=== PATIENT | female | born 1995 | race Two or more races ===

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

== ENCOUNTER 2017-04-26 21:17 | Outpatient (CLI) | payer MEDICAID ==
[2017-04-26 21:55] LABS: APPEARANCE,URINE SLIGHTLY-CLOUDY; BILIRUBIN,URINE NEGATIVE (NEGATIVE); COLOR,URINE YELLOW; GLUCOSE, URINE NEGATIVE (NEGATIVE); KETONES,URINE NEGATIVE (NEGATIVE); LEUKOCYTE ESTERASE,URINE NEGATIVE (NEGATIVE); NITRITE,URINE NEGATIVE (NEGATIVE); PROTEIN,URINE NEGATIVE (NEGATIVE); URINE SPECIFIC GRAVITY 1.017
[2017-04-26 22:11] LABS: URINE AMPHETAMINES SCREEN NEGATIVE; URINE BARBITURATES SCREEN NEGATIVE; URINE BENZODIAZEPINES SCREEN NEGATIVE; URINE COCAINE SCREEN NEGATIVE; URINE MARIJUANA (THC) SCREEN NEGATIVE; URINE METHADONE SCREEN NEGATIVE; URINE PHENCYCLIDINE SCREEN NEGATIVE
[2017-04-26] MEDS ORDERED: HYDROXYZINE PAMOATE 50 MG CAPSULE PO ONE (22:50)
[2017-04-26] MEDS ORDERED: HYDROXYZINE PAMOATE 50 MG CAPSULE ONE (22:53)
--- NOTE | 2017-04-26 23:06 | Non Stress Test Report ---
Non Stress Test Datetime Report Generated by CPN: 04/26/2017 23:06 DEMOGRAPHIC EGA NST: 41.0 INDICATION Indication for Study: Ordered by Provider URINE RESULTS Urine Protein, NST: Negative Urine Ketones - NST: Negative Urine Glucose - NST: Negative Urine Blood - NST: Negative MONITORING Monitor Explained: Monitor Explained; Test Explained; Patient Verbalized Understanding Time on Monitor: 04/26/2017 21:32 Time off Monitor: 04/26/2017 22:53 NST Duration: 81 NST INTERVENTIONS NST Interventions: PO Hydration; Oxytocin Challenge Test Physician Notified NST: Dr. Alvin BABY A: [id number] BABY A Movement : Present Contraction Frequency : 1-8 FHR Baseline : 145 Accelerations : 15X15 Decelerations : None Variability : Moderate 6-25bpm NST Review: Meets Criteria for Reactive NST NST Review and Verified By : Rosa Elena Muñoz RN NST Results: Reactive NST REPORT Report Trigger: Send Report
== END 2017-04-26 23:08 | disposition home or self-care (01) ==
LOC: LC 21:17
PROVIDERS: ATTEND Obstetrics & Gynecology
PROC: 4A1HXCZ Monitoring of Products of Conception, Cardiac Rate, External Approach (ICD-10-PCS; principal; 2017-04-26)
DX: Z34.93 Encounter for supervision of normal pregnancy, unspecified, third trimester (principal)
CPT/HCPCS: 59025; 81005; 80307; J3490

== ENCOUNTER 2017-04-27 01:26 | Inpatient (IN) | payer MEDICAID ==
[2017-04-27 02:13] LABS: ABSOLUTE EOSINOPHILS # (AUTO) 0.1 10^3/uL (0.0-0.6); ABSOLUTE LYMPHOCYTES (AUTO) 2.2 10^3/uL (0.5-4.7); ABSOLUTE NEUT (AUTO) 11.2 10^3/uL (1.7-8.2); BASOPHILS % (AUTO) 0.2 % (0-2); EOSINOPHILS % (AUTO) 0.8 % (0-6); HEMATOCRIT 33.7 % (36.0-47.0); HEMOGLOBIN 11.2 g/dL (12.0-15.5); LYMPHOCYTES % (AUTO) 15.1 % (13-45); MEAN CORPUSCULAR HEMOGLOBIN 29.4 pg (27.0-33.4); MEAN CORPUSCULAR HGB CONC 33.1 g/dL (32.0-36.0); MEAN CORPUSCULAR VOLUME 89 fl (80-97); MONOCYTES % (AUTO) 6.9 % (3-13); PLATELET COUNT 287 10^3/uL (150-450); RED CELL DISTRIBUTION WIDTH 13.5 % (11.5-14.0); TOTAL CELLS COUNTED % (AUTO) 100 %; WHITE BLOOD COUNT 14.6 10^3/uL (4.0-10.5)
[2017-04-27] MEDS: RINGERS SOLUTION,LACTATED 1,000 ML IV PRN ×3 (02:23→03:22)
[2017-04-27] MEDS ORDERED: MISOPROSTOL 0.2 MG TABLET ONE (02:30)
[2017-04-27] MEDS ORDERED: EPHEDRINE SULFATE INJ 50 MG/1 ML AMPULE ONE (02:30)
[2017-04-27] MEDS ORDERED: LIDOCAINE 1% INJ-PF (10 MG/ML) 30 ML SDV ONE (02:31)
[2017-04-27] MEDS ORDERED: FENTANYL/BUPIVACAINE/NS/PF 200 MCG/100 ML RTUINJ EPI ONE (02:31)
[2017-04-27] MEDS ORDERED: OXYTOCIN/NORMAL SALINE 20 UNIT/1,000 ML RTUINJ ONE (02:31)
[2017-04-27] MEDS ORDERED: BUPIVACAINE HCL 0.25 % INJ/PF (2.5 MG/1 ML) 30 ML VIAL ONE (02:31)
[2017-04-27] MEDS ORDERED: PROMETHAZINE HCL 25 MG TABLET PO PRN (06:13)
[2017-04-27] MEDS ORDERED: GLYCERIN/WITCH HAZEL LEAF 1 EACH MED..PAD TP PRN (06:13)
[2017-04-27] MEDS ORDERED: DIBUCAINE 1% OINTMENT 28 GM TP PRN (06:13)
[2017-04-27] MEDS ORDERED: NA PHOS,M-B/NA PHOS,DI-BA (ADULT) 133 ML ENEMA PR PRN (06:13)
[2017-04-27] MEDS ORDERED: PROMETHAZINE HCL 25 MG SUPP.RECT PR PRN (06:13)
[2017-04-27] MEDS ORDERED: MEASLES,MUMPS&RUBELLA VACC/PF 0.5 ML VIAL SUBCUT PRN (06:13)
[2017-04-27] MEDS ORDERED: ACETAMINOPHEN WITH CODEINE #3 TABLET PO PRN ×2 (06:13)
[2017-04-27] MEDS ORDERED: ACETAMINOPHEN 650 MG SUPP.RECT PR PRN (06:13)
[2017-04-27] MEDS ORDERED: MAGNESIUM HYDROXIDE SUSP 30 ML UDCUP PO PRN (06:13)
[2017-04-27] MEDS ORDERED: OXYTOCIN/NORMAL SALINE 20 UNIT/1,000 ML RTUINJ IV PRN (06:13)
[2017-04-27] MEDS ORDERED: PSEUDOEPHEDRINE HCL 30 MG TABLET PO PRN (06:13)
[2017-04-27] MEDS ORDERED: DIPH/PERTUSS(ACELL)/TETANUS VAC/PF 0.5 ML SYR (>=10YO) IM PRN (06:13)
[2017-04-27] MEDS ORDERED: PROMETHAZINE HCL INJ 25 MG/1 ML VIAL IV PRN (06:13)
[2017-04-27] MEDS ORDERED: ZOLPIDEM TARTRATE 5 MG TABLET PO PRN (06:13)
[2017-04-27] MEDS ORDERED: DIPHENHYDRAMINE HCL 25 MG CAPSULE PO PRN (06:13)
[2017-04-27] MEDS ORDERED: BENZOCAINE/MENTHOL AEROSOL SPRAY 56 ML TOP PRN (06:13)
[2017-04-27 06:44] LABS: ARTERIAL BLOOD BASE EXCESS -2.8 mmol/L; ARTERIAL BLOOD H2CO3 1.52 mmol/L (1.05-1.35); ARTERIAL BLOOD HCO3 24.2 mmol/L (20-26); ARTERIAL BLOOD O2 SATURATION 23.4 % (94-98); ARTERIAL BLOOD PCO2 50.5 mmHg (35-45); ARTERIAL BLOOD TOTAL CO2 25.7 mmol/L (21-25)
[2017-04-27 06:45] LABS: ARTERIAL BLOOD FIO2 CORD BLOOD; ARTERIAL BLOOD PO2 18.3 mmHg (80-100)
--- NOTE | 2017-04-27 09:18 | Admission Physical ---
Datetime Report Generated by CPN: 04/27/2017 09:18 CURRENT ADMISSION Chief Complaint: Uterine Contractions Indication for Induction: Not Applicable Indication for Induction: Term, Intrauterine Admit Impression- Other: active labor Admit Plan: Admit to Unit Admit Plan- Other: 1. IVF 2. GBS negtive 3. anticipate ALLERGIES Medication Allergies: No Medication Allergies: No Known Allergies (04/26/2017) Medication Allergies: No Known Allergies (03/23/2013) Latex: No Latex Allergies OBSTETRICAL HISTORY EDC: 04/19/2017 00:00 : 1 Para: 0 Term: 0 : 0 SAB: 0 IAB: 0 Ectopic: 0 Livin Cesareans: 0 VBACs: 0 Multiple Births: 0 Gestational Diabetes: No Rh Sensitization: No Incompetent Cervix: No SUJATHA: No Infertility: No ART Treatment: No Uterine Anomaly: No IUGR: No Hx Previous C/S: No Macrosomia: No Hx Loss/Stillborn: No PIH: No Hx : No Placenta Previa/Abruption: No Depression/PP Depression: No PTL/PROM: No Post Hemorrhage: No Current Procedures: Ultrasound Obstetrical History Comments: G1: current SEE RECORDS Alcohol: No Marijuana : No Cocaine: No Other Illicit Drugs: No Cigarettes: Never Smoker. [id number] MEDICAL HISTORY Diabetes: No Blood Transfusion: No Pulmonary Disease (Asthma, TB): No Breast Disease: No Hypertension: No Closing Supervisor Surgery: No Heart Disease: No Hosp/Surgery: No Autoimmune Disorder: No Anesthetic Complications: No Kidney Disease: No Abnormal Pap Smear: No Neuro/Epilepsy: No Psychiatric Disorders: No Other Medical Diseases: No Hepatitis/Liver Disease: No Significant Family History: No Varicosities/Phlebitis: No Trauma/Violence : No Thyroid Dysfunction: No INFECTIOUS HISTORY Gonorrhea: No Genital Herpes: No Chlamydia: No Tuberculosis: No Syphilis: No Hepatitis: No HIV/AIDS Exposure: No Rash or Viral Illness: No HPV: No Infectious History Comments: denies PHYSICAL EXAM General: Normal HEENT: Normal Neurologic: Normal Thyroid: Normal Heart: Normal Lungs: Normal Breast: Deferred Back: Deferred Abdomen: Normal Genitourinary Exam: Normal Extremities: Normal DTRs: Normal Pelvic Type: Adequate VAGINAL EXAM Dilatation: 4 Effacement: 80 Station: -2 Contraction Comments: 3 MEMBRANES Membranes: Intact FETUS A EGA: 41.1 Monitoring: External US FHR- Baseline: 130 Variability: Moderate 6-25bpm Accelerations: 15X15 Decelerations: Early; Variable FHR Category: Category I PLANS FOR LABOR AND DELIVERY Labor and Delivery: None Pain Management: Epidural Feeding Preference: Breast Benefit of Breast Feed Discussed: Yes Circumcision: N/A INFORMED CONSENT Signature: with User ID: [email or web address]
--- NOTE | 2017-04-27 09:19 | Delivery Summary ---
Del Sum A-C Datetime Report Generated by CPN: 04/27/2017 09:18 DELIVERY PERSONNEL DELIVERY PERSONNEL: [id number] Delivery Doctor:: Loreta Esquivel MD Labor and Delivery Nurse:: Richa Barros RNmanager recruitment Nurse:: Kenzie Muñoz RN Nursery Nurse:: Nikki Chavira RN Solution Strategist/SPECIAL EDUCATION RESOURCE TEACHER: Kendra Semar, INTERNET MARKETING DIRECTOR MATERNAL INFORMATION Delivery Anesthesia: Epidural Medications After Delivery: Pitocin Bolus-Please Comment Meds After Delivery Comment: pitocin 20 units in 1000 ml NS Estimated Blood Loss (ml): see md report Maternal Complications: None LABOR SUMMARY EDC: 04/19/2017 00:00 No. Babies in Womb: 1 Attempted: No Labor Anesthesia: Epidural LABOR INFORMATION Reason for Induction: Not Applicable Onset of Labor: 04/26/2017 22:40 Complete Dilatation: 04/27/2017 05:34 Oxytocin: N/A Group B Beta Strep: Negative Antibiotics # of Doses: 0 Antibiotics Time of Last Dose: n/a Name of Antibiotic Given: n/a Steroids Given: None Reason Steroids Not Administered: Not Applicable MEMBRANES Membranes Rupture Method: Spontaneous Rupture of Membranes: 04/27/2017 03:14 Length of Rupture (hr): 2.75 Amniotic Fluid Color: Moderate Meconium Amniotic Fluid Amount: Moderate Amniotic Fluid Odor: Normal STAGES OF LABOR Stage 1 hr: 6 Stage 1 min: 54 Stage 2 hr: 0 Stage 2 min: 25 Stage 3 hr: 0 Stage 3 min: 3 Total Time in Labor hr: 7 Total Time in Labor min: 22 VAGINAL DELIVERY Episiotomy: None Laceration #1: Perineal Laceration Extension #1: First Degree Laceration #2: None Laceration Extension #2: N/A Laceration #3: None Laceration Extension #3: N/A Laceration Repair: Yes Laceration Repair Note: 3-0 Chromic on SH. continuous stitch. Sponge Count Correct: Yes Sharps Count Correct: Yes CSECTION DELIVERY Primary Indication: N/A Secondary Indication: N/A CSection Incidence: N/A Labor: N/A Elective: N/A CSection Incision: N/A BABY A INFORMATION Delivery Date/Time: 04/27/2017 05:59 Method of Delivery: Vaginal Born in Route : No : N/A Forceps: N/A Vacuum Extraction: N/A Shoulder Dystocia : No PRESENTATION/POSITION BABY A Presentation: Cephalic Cephalic Presentation: Vertex Vertex Position: Left Occipital Anterior Breech Presentation: N/A PLACENTA INFORMATION BABY A Placenta Delivery Time : 04/27/2017 06:02 Placenta Method of Delivery: Spontaneous Placenta Status: Delivered SCORES BABY A Heart Rate 1 min: >100 bpm Resp Effort 1 min: Good Cry Reflex Irritability 1 min: Cough or Sneeze or Pulls Away Muscle Tone 1 min: Active Motion Color 1 min: Blue/Pale Resuscitation Effort 1 min: Tactile Stimulation SCORE 1 MIN: 8 Heart Rate 5 min: >100 bpm Resp Effort 5 min: Good Cry Reflex Irritability 5 min: Cough or Sneeze or Pulls Away Muscle Tone 5 min: Active Motion Color 5 min: Body Delia, Extremities Blue Resuscitation Effort 5 min: Tactile Stimulation SCORE 5 MIN: 9 INFORMATION BABY A Gestational Age at Delivery: 41.1 Gestational Status: Late Term- 41- 41.6 Weeks Infant Outcome : Liveborn Infant Condition : Stable Sex: Female IDENTIFICATION BABY A Verification Date/Time: 04/27/2017 06:05 ID Band Number: [id number] Mother's Name Verified: Yes Infant RN Verifying Infant: Cyril BravoMiguel LARSEN Additional Verifying Personnel: Hiral Bowden RN WEIGHT/LENGTH BABY A Infant Birthweight (gm): 3210 Weight (lb): 7 Infant Weight (oz): 1 Length (in): 19.00 Infant Length (cm): 48.26 CORD INFORMATION BABY A No. Cord Vessels: 3 Nuchal Cord : N/A Cord Blood Taken: Yes-For Storage (Mom's Blood type +) Suction: Mouth; Nose ASSESSMENT BABY A Infant Complications: Meconium Physical Findings at Delivery: Within Normal Limits Physical Findings- Other: Meconium Infant Respirations: Appears Normal Skin to Skin: Yes Skin to Skin Time (min): 30 Electronics Instructor/ALS Called : No Care By: Manuel Riveraley, SUZIE Transferred To: Remains with Mother BABY B INFORMATION : N/A SIGNATURES Signature: with User ID: [email or web address]
[2017-04-27] MEDS: FERROUS SULFATE 325 MG TABLET PO SCH ×2 (10:10→16:58)
[2017-04-27] MEDS: SENNOSIDES/DOCUSATE 8.6-50 MG 1 EACH TABLET PO SCH (10:10)
[2017-04-27] MEDS: PRENATAL VITAMIN W DHA CAPSULE PO SCH ×2 (10:10→10:12)
[2017-04-27] MEDS: FAMOTIDINE 20 MG TABLET PO SCH ×2 (10:11→21:56)
[2017-04-27] MEDS: DOCUSATE SODIUM 100 MG CAPSULE PO SCH ×2 (10:11→16:59)
[2017-04-27] MEDS: IBUPROFEN 800 MG TABLET PO SCH ×2 (14:42→21:56)
[2017-04-28] MEDS: IBUPROFEN 800 MG TABLET PO SCH ×3 (05:02→21:10)
[2017-04-28 07:25] LABS: HEMATOCRIT 32.2 % (36.0-47.0); HEMOGLOBIN 10.7 g/dL (12.0-15.5); MEAN CORPUSCULAR HEMOGLOBIN 29.5 pg (27.0-33.4); MEAN CORPUSCULAR HGB CONC 33.2 g/dL (32.0-36.0); MEAN CORPUSCULAR VOLUME 89 fl (80-97); PLATELET COUNT 233 10^3/uL (150-450); RED BLOOD COUNT 3.61 10^6/uL (3.72-5.28); RED CELL DISTRIBUTION WIDTH 13.5 % (11.5-14.0); WHITE BLOOD COUNT 12.6 10^3/uL (4.0-10.5)
--- NOTE | 2017-04-28 08:58 | PDOC PROGRESS REPORT ---
Subjective-OB Subjective: Post Delivery Day: 22 year old. Denies any needs at this time s/p vaginal delivery pt sitting up without difficulty denies any clots no concerns anticipate d/c in AM Physical Exam (OB) Vital Signs: Temp Pulse Resp BP Pulse Ox 98.3 F 103 H 18 97/58 L 100 04/28/17 08:00 04/28/17 08:00 04/28/17 08:00 04/28/17 08:00 04/28/17 08:00 Intake & Output 04/27/17 04/28/17 04/29/17 06:59 06:59 06:59 Intake Total 400 Balance 400 Weight 89 kg - PIH/Pre-Eclampsia Clonus: Negative - Lochia Lochia Amount: Scant < 10 ml Lochia Color: Rubra/Red - Abdomen Description: Tender, Soft, Flat Hernia Present: No Fundal Description: Firm, Midline Fundal Height: u/u - u/2 Objective-Diagnostic Laboratory: 04/28/17 07:03 04/28/17 07:03 WBC 12.6 H RBC 3.61 L Hgb 10.7 L Hct 32.2 L MCV 89 MCH 29.5 MCHC 33.2 RDW 13.5 Plt Count 233
[2017-04-28] MEDS: PRENATAL VITAMIN W DHA CAPSULE PO SCH ×2 (09:24→09:26)
[2017-04-28] MEDS: FAMOTIDINE 20 MG TABLET PO SCH ×2 (09:24→21:11)
[2017-04-28] MEDS: SENNOSIDES/DOCUSATE 8.6-50 MG 1 EACH TABLET PO SCH (09:24)
[2017-04-28] MEDS: FERROUS SULFATE 325 MG TABLET PO SCH ×2 (09:24→17:27)
[2017-04-28] MEDS: DOCUSATE SODIUM 100 MG CAPSULE PO SCH ×2 (09:24→17:27)
[2017-04-29] MEDS: IBUPROFEN 800 MG TABLET PO SCH (05:22)
--- NOTE | 2017-04-29 09:30 | PDOC DISCHARGE SUMMARY ---
Final Diagnosis Discharge Date: 04/29/17 - Final Diagnosis (1) Vaginal delivery Is this a current diagnosis for this admission?: Yes Discharge Data - Discharge Medication Home Medications: Vit/Iron Fum/Folic AC [ Tablet] 1 each PO DAILY 04/26/17 Reason(s) for Admission: Onset of Labor Procedures: NST Intrapartum Procedure(s): Spontaneous Vaginal Delivery Complication(s): Laceration-Perineal Laceration-Degree: 1st - Diagnosis Test Laboratory: Temp Pulse Resp BP Pulse Ox 97.6 F 56 L 16 121/72 100 04/29/17 07:37 04/29/17 07:37 04/29/17 07:37 04/29/17 07:37 04/29/17 07:37 04/27/17 04/28/17 01:57 07:03 RBC 3.80 3.61 L Hgb 11.2 L 10.7 L Hct 33.7 L 32.2 L - Discharge information/Instructions Discharge Activity: Balance Activity w/Rest, Pelvic Rest Discharge Diet: Regular Disposition: HOME, SELF-CARE Follow up with: [facility] in: 4, Weeks
[2017-04-29] MEDS: SENNOSIDES/DOCUSATE 8.6-50 MG 1 EACH TABLET PO SCH (09:33)
[2017-04-29] MEDS: PRENATAL VITAMIN W DHA CAPSULE PO SCH ×2 (09:33→10:06)
[2017-04-29] MEDS: FAMOTIDINE 20 MG TABLET PO SCH (09:33)
[2017-04-29] MEDS: FERROUS SULFATE 325 MG TABLET PO SCH (09:34)
[2017-04-29] MEDS: DOCUSATE SODIUM 100 MG CAPSULE PO SCH (09:34)
[2017-04-29 10:01] VITALS: BP 97/58
== END 2017-04-29 11:39 | disposition home or self-care (01) | DRG 775 ==
LOC: LC 01:26 → LR 01:48 → 2S 09:15
PROVIDERS: ADMIT Obstetrics & Gynecology; ATTEND Obstetrics & Gynecology
PROC: 10E0XZZ Delivery of Products of Conception, External Approach (ICD-10-PCS; principal; 2017-04-27)
PROC: 0HQ9XZZ Repair Perineum Skin, External Approach (ICD-10-PCS; 2017-04-27)
PROC: 4A1HXCZ Monitoring of Products of Conception, Cardiac Rate, External Approach (ICD-10-PCS; 2017-04-27)
DX: O48.0 Post-term pregnancy (principal); O70.0 First degree perineal laceration during delivery; O77.0 Labor and delivery complicated by meconium in amniotic fluid; Z3A.41 41 weeks gestation of pregnancy; Z37.0 Single live birth
CPT/HCPCS: 36415; 82803; 85025; 85027; 86592; 86850; 86900; 86901; 88307; 94760; J2590; J3490

== ENCOUNTER 2017-05-22 20:04 | Emergency (ER) | payer OTHER, MEDICAID ==
[2017-05-22] MEDS ORDERED: IBUPROFEN 800 MG TABLET PO ONE (21:12)
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
[2017-05-22 23:00] VITALS: BP 116/54
== END 2017-05-22 23:00 | disposition home or self-care (01) ==
LOC: ER 20:04
DX: O90.9 Complication of the puerperium, unspecified (principal); S80.02XA Contusion of left knee, initial encounter; R51 Headache; M54.5 Low back pain; X58.XXXA Exposure to other specified factors, initial encounter
CPT/HCPCS: 99283

== ENCOUNTER 2017-11-21 18:49 | Emergency (ER) | payer MEDICAID, OTHER ==
--- NOTE | 2017-11-21 19:34 | ER Document Report ---
ED Medical Screen (RME) - General Chief Complaint: Psych Problem Stated Complaint: ARM LACERATION Time Seen by Provider: 11/21/17 19:27 Mode of Arrival: Ambulatory TRAVEL OUTSIDE OF THE [place] IN LAST 30 DAYS: No - HPI Patient complains to provider of: Depression Onset: Other - 22-year-old female presents for evaluation of an episode of self- injurious behavior attempting to cut her left forearm with a razor as well as both of her wrists, she notes that she has been having self-injurious thoughts every day for as long as she can remember that she does not have any diagnoses. Denies any ingestions, other health problems, any chance that she could be . She has had a tetanus shot as recently as one year prior. - Related Data Allergies/Adverse Reactions: No Known Allergies Allergy (Verified 04/26/17 22:51) Past Medical History - General Information source: Patient, Relative - Social History Chew tobacco use (# tins/day): No Frequency of alcohol use: Rare Drug Abuse: Marijuana Renal/ Medical History: Denies: Hx Peritoneal Dialysis Psychiatric Medical History: Reports: Hx Depression - Immunizations Immunizations up to date: Yes Hx Diphtheria, Pertussis, Tetanus Vaccination: Yes History of Influenza Vaccine for 12/2016 - 05/2017 Season: Yes Review of Systems - Review of Systems -: Yes All other systems reviewed and negative Physical Exam - Vital signs Vitals: Temp Pulse Resp BP Pulse Ox 98.3 F 60 16 131/61 H 100 11/21/17 18:55 11/21/17 18:55 11/21/17 18:55 11/21/17 18:55 11/21/17 18:55 - General General appearance: Appears well In distress: None - HEENT Head: Normocephalic Course - Re-evaluation Re-evalutation: 11/21/17 19:36 This 22-year-old female presents for evaluation of self injurious behavior and desire to harm herself, she says that she has been thinking of killing herself every day for as long as she can remember. She does have a laceration over her left antecubital which does not appear to penetrate the underlying tissues. Says tetanus in the last year, given that she has tried to kill herself and has depression will plan for patient to undergo evaluation by the mental health team , will obtain psych screening labs. Will defer tetanus administration at this time she has had one recently. - Vital Signs Vital signs: Temp Pulse Resp BP Pulse Ox 98.3 F 60 16 131/61 H 100 11/21/17 18:55 11/21/17 18:55 11/21/17 18:55 11/21/17 18:55 11/21/17 18:55 Doctor's Discharge - Discharge Clinical Impression: Depression, Self-inflicted injury
[2017-11-21 20:49] LABS: APPEARANCE,URINE CLOUDY; BILIRUBIN,URINE NEGATIVE (NEGATIVE); COLOR,URINE YELLOW; GLUCOSE, URINE NEGATIVE (NEGATIVE); KETONES,URINE 80 mg/dL (NEGATIVE); LEUKOCYTE ESTERASE,URINE MODERATE (NEGATIVE); NITRITE,URINE NEGATIVE (NEGATIVE); PROTEIN,URINE 30 mg/dL (NEGATIVE); URINE SPECIFIC GRAVITY 1.028
[2017-11-21 20:53] LABS: ABSOLUTE LYMPHOCYTES (AUTO) 0.8 10^3/uL (0.5-4.7); ABSOLUTE MONOCYTES (AUTO) 0.3 10^3/uL (0.1-1.4); ABSOLUTE NEUT (AUTO) 8.5 10^3/uL (1.7-8.2); BASOPHILS % (AUTO) 0.2 % (0-2); HEMATOCRIT 38.9 % (36.0-47.0); LYMPHOCYTES % (AUTO) 8.1 % (13-45); MEAN CORPUSCULAR HEMOGLOBIN 29.3 pg (27.0-33.4); MEAN CORPUSCULAR HGB CONC 33.5 g/dL (32.0-36.0); MEAN CORPUSCULAR VOLUME 87 fl (80-97); MONOCYTES % (AUTO) 2.8 % (3-13); PLATELET COUNT 369 10^3/uL (150-450); RED BLOOD COUNT 4.45 10^6/uL (3.72-5.28); RED CELL DISTRIBUTION WIDTH 13.2 % (11.5-14.0); SEGMENTED NEUTROPHILS % (AUTO) 88.9 % (42-78); TOTAL CELLS COUNTED % (AUTO) 100 %; WHITE BLOOD COUNT 9.5 10^3/uL (4.0-10.5)
--- NOTE | 2017-11-21 21:00 | ER Document Report ---
ED Psych Disorder / Suicide - General Chief Complaint: Psych Problem Stated Complaint: ARM LACERATION Time Seen by Provider: 11/21/17 19:27 Mode of Arrival: Ambulatory Notes: Patient is a 22-year-old female who presents with chief complaint of self- inflicted laceration. Patient has a 3 cm laceration to her left antecubital, there is no active bleeding at this time and appears to be in the adipose tissue. Patient reports she was in an argument with her girlfriend and that she was attempting to kill herself. Patient also has multiple superficial lacerations to her left wrist. Patient reports that she has felt like killing herself for many years but has never sought treatment for this. Patient denies any homicidal ideations. Patient reports last tetanus shot was within 1 year. Patient denies any other medical history. TRAVEL OUTSIDE OF THE [place] IN LAST 30 DAYS: No - Related Data Allergies/Adverse Reactions: No Known Allergies Allergy (Verified 04/26/17 22:51) Past Medical History - General Information source: Patient, Relative - Social History Smoking Status: Current Every Day Smoker Chew tobacco use (# tins/day): No Frequency of alcohol use: Rare Drug Abuse: Marijuana Family History: DM, Thyroid Disfunction Patient has suicidal ideation: Yes Patient has homicidal ideation: No Renal/ Medical History: Denies: Hx Peritoneal Dialysis Psychiatric Medical History: Reports: Hx Depression - Immunizations Immunizations up to date: Yes Hx Diphtheria, Pertussis, Tetanus Vaccination: Yes Review of Systems - Review of Systems Constitutional: No symptoms reported EENT: No symptoms reported Cardiovascular: No symptoms reported Respiratory: No symptoms reported Gastrointestinal: No symptoms reported Genitourinary: No symptoms reported Female Genitourinary: No symptoms reported Musculoskeletal: No symptoms reported Skin: See HPI Hematologic/Lymphatic: No symptoms reported Neurological/Psychological: See HPI Physical Exam - Vital signs Vitals: Temp Pulse Resp BP Pulse Ox 98.3 F 60 16 131/61 H 100 11/21/17 18:55 11/21/17 18:55 11/21/17 18:55 11/21/17 18:55 11/21/17 18:55 - Notes Notes: PHYSICAL EXAMINATION: GENERAL: Well-appearing, well-nourished and in no acute distress. HEAD: Atraumatic, normocephalic. EYES: Pupils equal round and reactive to light, extraocular movements intact, conjunctiva are normal. ENT: Nares patent, oropharynx clear without exudates. Moist mucous membranes. NECK: Normal range of motion, supple without lymphadenopathy LUNGS: Breath sounds clear to auscultation bilaterally and equal. No wheezes rales or rhonchi. HEART: Regular rate and rhythm without murmurs ABDOMEN: Soft, nontender, nondistended abdomen. No guarding, no rebound. No masses appreciated. Female : deferred Musculoskeletal: Normal range of motion, no pitting or edema. No cyanosis. NEUROLOGICAL: Cranial nerves grossly intact. Normal speech, normal gait. Normal sensory, motor exams PSYCH: Normal mood, normal affect. SKIN: Warm, Dry, normal turgor, no rashes or lesions noted. 3 cm laceration over the left antecubital space, well approximated, no active bleeding. Multiple superficial lacerations to the left wrist. Course - Re-evaluation Re-evalutation: Patient is calm, cooperative and updated on the plan of care. Laceration repaired, see procedure notes. Patient will then be medically cleared per the IVC protocol. Patient will be seen by psychiatric team in the morning. Patient is medically cleared, awaiting psychiatric evaluation. - Vital Signs Vital signs: Temp Pulse Resp BP Pulse Ox 98.3 F 60 16 131/61 H 100 11/21/17 18:55 11/21/17 18:55 11/21/17 18:55 11/21/17 18:55 11/21/17 18:55 - Laboratory Result Diagrams: 11/21/17 20:10 11/21/17 20:10 Laboratory results interpreted by me: 11/21/17 11/21/17 11/21/17 20:10 20:10 20:10 Seg Neutrophils % 88.9 H Lymphocytes % 8.1 L Monocytes % 2.8 L Absolute Neutrophils 8.5 H Total Protein 8.4 H Urine Protein 30 H Urine Ketones 80 H Urine Blood SMALL H Urine Urobilinogen 4.0 H Ur Leukocyte Esterase MODERATE H Salicylates < 1.0 L Acetaminophen < 10 L Procedures - Laceration/Wound Repair left antecubical Wound length (cm): 2 Wound's Depth, Shape: Superficial Laceration pre-procedure: Sterile PPE donned Anesthetic type: 1% Lidocaine Volume Anesthetic (mLs): 4 Wound explored: Clean Irrigated w/ Saline (mLs): 50 Wound Repaired With: Sutures Suture Size/Type: 4:0, Nylon Number of Sutures: 7 Layer Closure?: No Post-procedure NV exam normal: Yes Complications: No Discharge - Discharge Clinical Impression: Self-inflicted injury Depression Qualifiers: Depression Type: unspecified Qualified Code(s): F32.9 - Major depressive disorder, single episode, unspecified Condition: Stable
[2017-11-21 21:02] LABS: ALANINE AMINOTRANSFERASE 19 U/L (9-52); ALBUMIN 4.8 g/dL (3.5-5.0); ALKALINE PHOSPHATASE 55 U/L (38-126); ANION GAP 13 (5-19); ASPARTATE AMINO TRANSFERASE 21 U/L (14-36); BILIRUBIN,DIRECT 0.3 mg/dL (0.0-0.4); BLOOD UREA NITROGEN 15 mg/dL (7-20); CALCIUM 9.9 mg/dL (8.4-10.2); CARBON DIOXIDE 23 mmol/L (22-30); CHLORIDE 106 mmol/L (98-107); GLUCOSE 96 mg/dL (75-110); POTASSIUM 4.5 mmol/L (3.6-5.0); SODIUM 141.7 mmol/L (137-145); TOTAL PROTEIN 8.4 g/dL (6.3-8.2)
[2017-11-21 21:03] LABS: URINE AMPHETAMINES SCREEN NEGATIVE; URINE BARBITURATES SCREEN NEGATIVE; URINE BENZODIAZEPINES SCREEN NEGATIVE; URINE COCAINE SCREEN NEGATIVE; URINE MARIJUANA (THC) SCREEN UNCONFIRMED POSITIVE; URINE METHADONE SCREEN NEGATIVE; URINE PHENCYCLIDINE SCREEN NEGATIVE
[2017-11-21 21:09] LABS: ACETAMINOPHEN < 10 ug/mL (10-30); ALCOHOL < 10 mg/dL (NONE DETECTED); SALICYLATE < 1.0 mg/dL (2.0-20.0)
[2017-11-21] MEDS ORDERED: LIDOCAINE 1% INJ-PF (10 MG/ML) 30 ML SDV INJ ONE (21:44)
[2017-11-21] MEDS ORDERED: NICOTINE 14 MG/24 HR PATCH.TD24 TD ONE (21:44)
--- NOTE | 2017-11-22 09:27 | EKG REPORT ---
SEVERITY:- NORMAL ECG - SINUS RHYTHM with SINUS ARRHYTHMIA : Confirmed by: Padma Rollins 22-Nov-2017 09:27:16
--- NOTE | 2017-11-22 09:28 | ER Document Report ---
Doctor's Note Notes: Laboratory 11/21/17 11/21/17 11/21/17 20:10 20:10 20:10 WBC 9.5 RBC 4.45 Hgb 13.0 Hct 38.9 MCV 87 MCH 29.3 MCHC 33.5 RDW 13.2 Plt Count 369 Seg Neutrophils % 88.9 H Lymphocytes % 8.1 L Monocytes % 2.8 L Eosinophils % 0.0 Basophils % 0.2 Absolute Neutrophils 8.5 H Absolute Lymphocytes 0.8 Absolute Monocytes 0.3 Absolute Eosinophils 0.0 Absolute Basophils 0.0 Sodium 141.7 Potassium 4.5 Chloride 106 Carbon Dioxide 23 Anion Gap 13 BUN 15 Creatinine 0.66 Est GFR ( Amer) > 60 Est GFR (Non-Af Amer) > 60 Glucose 96 Calcium 9.9 Total Bilirubin 1.0 Direct Bilirubin 0.3 Neonat Total Bilirubin Not Reportable Neonat Direct Bilirubin Not Reportable Neonat Indirect Bili Not Reportable AST 21 ALT 19 Alkaline Phosphatase 55 Total Protein 8.4 H Albumin 4.8 Serum HCG, Qual NEGATIVE Urine Color Urine Appearance Urine pH Ur Specific [place] Urine Protein Urine Glucose (UA) Urine Ketones Urine Blood Urine Nitrite Urine Bilirubin Urine Urobilinogen Ur Leukocyte Esterase Urine WBC (Auto) Urine RBC (Auto) Urine Bacteria (Auto) Squamous Epi Cells Auto Urine Mucus (Auto) Urine Ascorbic Acid Salicylates < 1.0 L Urine Opiates Screen Urine Methadone Screen Acetaminophen < 10 L Ur Barbiturates Screen Ur Phencyclidine Scrn Ur Amphetamines Screen U Benzodiazepines Scrn Urine Cocaine Screen U Marijuana (THC) Screen Serum Alcohol < 10 11/21/17 11/21/17 20:10 20:10 WBC RBC Hgb Hct MCV MCH MCHC RDW Plt Count Seg Neutrophils % Lymphocytes % Monocytes % Eosinophils % Basophils % Absolute Neutrophils Absolute Lymphocytes Absolute Monocytes Absolute Eosinophils Absolute Basophils Sodium Potassium Chloride Carbon Dioxide Anion Gap BUN Creatinine Est GFR ( Amer) Est GFR (Non-Af Amer) Glucose Calcium Total Bilirubin Direct Bilirubin Neonat Total Bilirubin Neonat Direct Bilirubin Neonat Indirect Bili AST ALT Alkaline Phosphatase Total Protein Albumin Serum HCG, Qual Urine Color YELLOW Urine Appearance CLOUDY Urine pH 5.0 Ur Specific [place] 1.028 Urine Protein 30 H Urine Glucose (UA) NEGATIVE Urine Ketones 80 H Urine Blood SMALL H Urine Nitrite NEGATIVE Urine Bilirubin NEGATIVE Urine Urobilinogen 4.0 H Ur Leukocyte Esterase MODERATE H Urine WBC (Auto) 18 Urine RBC (Auto) 9 Urine Bacteria (Auto) TRACE Squamous Epi Cells Auto 6 Urine Mucus (Auto) MANY Urine Ascorbic Acid NEGATIVE Salicylates Urine Opiates Screen NEGATIVE Urine Methadone Screen NEGATIVE Acetaminophen Ur Barbiturates Screen NEGATIVE Ur Phencyclidine Scrn NEGATIVE Ur Amphetamines Screen NEGATIVE U Benzodiazepines Scrn NEGATIVE Urine Cocaine Screen NEGATIVE U Marijuana (THC) Screen UNCONFIRMED POSITIVE Serum Alcohol 11/22/17 09:26 22-year-old female with depression presents after a self-inflicted arm laceration and attempt to kill herself yesterday. Per nursing there were no events over is resting comfortably. She has no physical complaints or requests at this time. Patient is under IVC petition. Awaiting psych recommendations. Medication recommendations are Prozac 20 mg daily. We will hold the patient overnight for further assessment. PHYSICAL EXAMINATION: GENERAL: Well-appearing, well-nourished and in no acute distress. HEAD: Atraumatic, normocephalic. EYES: Pupils equal round extraocular movements intact, conjunctiva are normal. ENT: Nares patent NECK: Normal range of motion LUNGS: No respiratory distress Musculoskeletal: Normal range of motion NEUROLOGICAL: Normal speech, normal gait. PSYCH: Normal mood, normal affect. SKIN: Warm, Dry, normal turgor, no rashes or lesions noted. 11/22/17 13:43
[2017-11-22] MEDS ORDERED: FLUOXETINE HCL 20 MG CAPSULE PO SCH (13:45)
[2017-11-22] MEDS ORDERED: ONDANSETRON 4 MG TAB.RAPDIS PO ONE (14:55)
[2017-11-22] MEDS ORDERED: DIPHENHYDRAMINE HCL 50 MG CAPSULE PO ONE (14:55)
[2017-11-22] MEDS ORDERED: BUSPIRONE HCL 10 MG TABLET PO SCH (18:00)
--- NOTE | 2017-11-23 08:11 | PSYCHOLOGICAL NOTE ---
Psych Note - Psych Note Psych Note: Reason for Consult: self injurious behavior Consent Permissions: Jody,patient's girlfriend at bedside, Pt into ER today with c/o arm laceration. Pt is bleeding at the antecubetal site on the left arm. Pt is crying and rocking in ER and is not answering questions. She is with another female who states "I don't know what she cut herself with, I found her at home like this." Pts arm wrapped with gauze and kerlex. Patient states that she got into an argument with her girlfriend earlier in the day. Girlfriend left the house to run some errands, patient went into the bathroom, kneeled down at the toilet and started to cut herself with a razor blade. Patient states that she has never done anything like this before. When Clinician asked the patient how she came to the decision to cut herself, patient stated that she had "always heard about it in school and decided to try it". Patient states that she was "overwhelmed" with life but just wanted to "hurt herself, instead of kill herself". Patient reports that she is not suicidal or homicidal and regrets "hurting her family and friends" through her actions. Primary stressors for the patient are 1. Patient's daughter lives in [place] with her parents 2. patient had an argument with biological father the night before about her sexual orientation 3. patient is unable to find work 4.relationship discord with current girlfriend. Patient disclosed that she is currently on probation for 2 years for communicating threats/maintaining a dwelling for drugs. Patient's girlfriend reports that they have been a couple since May 2017 and have ups and downs, like any other couple. However, patient denies that they were on the verge of breaking up on the night of the incident. Girlfriend reports that the patient sent a "goodbye" text to one of their mutual friends. The girlfriend received that notification as she was walking into the house. Girlfriend stated that she searched through the house and finally found her in the 2nd bathroom. Girlfriend was trying to talk to the patient through the door , as it was locked. Eventually the girlfriend took a butter knife and opened the door. Girlfriend states that she was shocked to find patient kneeling over the toilet. She grabbed a towel, wrapped her arm and rushed her to the hospital. Behavioral Health Team is actively searching for placement for this patient and IVC is in place. Patient is alert and oriented to person, place, time and circumstance. Mood is dysphoric; patient's mood is noted to become slightly irritated with any inquiry during the assessment. Patient denies any suicidal or homicidal ideation stating that she regrets hurting her friends and family. Patient presents with an intact reality based presentation i.e. organized and thought process. Eye contact was well maintained. Conversational speech was within normal rate, tone and prosody. Intellectual abilities are in the fair range. Attention and concentration are fair. Insight, judgment, impulse control are fair. Medication recommendations per [facility]'s contracted psychiatrist Dr. Moernita AMEZCUA are as follows: Prozac 20 mg daily Buspar 10 mg twice daily Diagnosis: 296.40 (F31.9) Bipolar 1 Disorder, Unspecified Impression/Plan: Patient is recommended for IVC. Behavioral Health team is actively searching for placement for this patient. Patient has been troubled for awhile and actually acted on her thoughts with the self injurious behavior. Patient's girlfriend reported that she sent a "goodbye" text to a mutual friend. Dr. Mccray was consulted and the care and management of this patient; attending physician is in agreement with recommendations and disposition.
[2017-11-23 11:28] VITALS: BP 108/47
--- NOTE | 2017-11-23 16:32 | ER Document Report ---
Doctor's Note Notes: 11/23/17 16:31 22-year-old female with depression presents after a self-inflicted arm laceration and attempt to kill herself yesterday. Per nursing there were no events over is resting comfortably. She has no physical complaints or requests at this time. Patient is under IVC petition. Awaiting psych recommendations. Medication recommendations are Prozac 20 mg daily. Patient reports that she feels much improved overnight. Medication recommendations include Prozac 20 mg daily and BuSpar 10 mg twice daily. Patient cleared by psychiatry for discharge home. Patient denies any suicidal ideation at this time. PHYSICAL EXAMINATION: GENERAL: Well-appearing, well-nourished and in no acute distress. HEAD: Atraumatic, normocephalic. EYES: Pupils equal round extraocular movements intact, conjunctiva are normal. ENT: Nares patent NECK: Normal range of motion LUNGS: No respiratory distress Musculoskeletal: Normal range of motion NEUROLOGICAL: Normal speech, normal gait. PSYCH: Normal mood, normal affect. SKIN: Warm, Dry, normal turgor, no rashes or lesions noted.
--- NOTE | 2017-11-24 18:28 | PSYCHOLOGICAL NOTE ---
Psych Note - Psych Note Psych Note: Reason for Consult: self injurious behavior Consent Permissions: Jody, patient's girlfriend at bedside, Clinician conducted check in with patient Patient is observed to be sitting up in bed and talking with her girlfriend. Patient states that she feels much better and did not experience any problems with the medicine the night before. Nurse reports that patient has had a good night, calm and cooperative. Patient denies any thoughts of suicide. Patient states that if she were to think that way again that she will sketch in her artist notebook and/or call a friend to talk through her feelings. Patient is interested in outpatient therapy. This Clinician also spoke to patient's Mom who now resides in [place]. Mom states that she left the area about 2 months ago for job opportunities. Mom is taking care of the patient's baby while she gets on her feet with a job, etc. No legal custody involved. Mom states that the patient is a very loving mother and looks forward to when she can be reunited with the baby. Mom states that the patient' s cutting and the incident is a huge surprise to her because the patient is always in good spirits. Mom did share that the patient received a call a few days earlier from patient's biological father that upset and that may have something to do with the incident. Mom states that the patient is welcome to come to [place] if she can get her probation transferred. This Clinician interviewed, Evelina, the patient's friend and the recipient of a "goodbye" text that the patient sent just before cutting herself. Evelina states that she and the patient have been friends for about 4 years and this came to a complete shock to her. Evelina said she talked to the patient earlier in the afternoon and everything was fine...and then about 2 hours later she got a text from Lexity that just said "I love you". Evelina texted her back and said " I love you too". And then the patient said to tell her family she loved them. Upon receiving that text Evelina tried to call her and patient would not slate picker the phone or return any texts. So, Evelina contacted the girlfriend. Girlfriend went into the house and found her in the 2nd bathroom. This Clinician confirmed that Mom, Girlfriend and Evelina are willing to be a part of the discharge plan in supporting the patient. This Clinician has given patient a resource list for Counseling services to include [facility] ([facility]), information on the Re-Entry program and the [facility] packet which includes the local food vargas. Patient is open to moving to [place]. Medication Recommendations per [facility]'s contracted psychiatrist Dr. Morenita AMEZCUA are as follows Prozac 20 mg daily Buspar 10 mg twice daily Diagnosis 296.40 (F31.9) Bipolar 1 Disorder, Unspecified Impression/Plan: Patient is recommended for rescind of IVC and is cleared from acute psychiatric services. Patient denies any suicidal thoughts. Patient is engaging in forward thinking and engages Clinician in a clear, organized manner. Patient is interested in outpatient therapy and medication management. Referrals have been given to the patient to access resources in her local community. Patient's support system has been established and confirmed. Dr. Mccray was consulted and the care and management of this patient; attending physician is in agreement with recommendations and disposition.
== END 2017-11-23 11:29 | disposition home or self-care (01) ==
LOC: ER 18:49
DX: S51.012A Laceration without foreign body of left elbow, initial encounter (principal); S61.512A Laceration without foreign body of left wrist, initial encounter; X78.8XXA Intentional self-harm by other sharp object, initial encounter; F31.9 Bipolar disorder, unspecified; F17.200 Nicotine dependence, unspecified, uncomplicated; F12.10 Cannabis abuse, uncomplicated
CPT/HCPCS: 93005; 99285; 36415; 80307 ×4; 84703; 85025; 80053; 81001; 93010; 12002; J3490

== ENCOUNTER 2019-07-07 12:22 | Emergency (ER) | payer MEDICAID ==
--- NOTE | 2019-07-07 12:43 | ER Document Report ---
ED General - General Chief Complaint: Abdominal Pain Stated Complaint: ABDOMINAL PAIN Time Seen by Provider: 07/07/19 12:40 Primary Care Provider: NÉSTOR CORDERO FNP-C [Primary Care Provider] - Follow up as needed Notes: triage note Pt presents to the ED with reports of upper abdominal pain that radiates to the back and N/V x3 days. Pt denies fever. Pt brought to room 1 via wheelchair. Pt appears uncomfortable and was dry heaving at pivot. Pt alert and oriented. Pt breaths even and unlabored with airway patent and intact. Will continue to monitor. My note; 24-year-old black female arrives by POV with chief complaint of right upper quadrant left upper quadrant abdominal pain with associated bilateral CVA pain. Patient has nausea and vomiting associated with this over the last 3 days. Patient reports this feels like labor pains. She has the kidney stone shuffle while in the room and reports she just vomited 10 minutes prior to me seeing her. She reports her mother has kidney stones as well. She denies any prior history of any kidney stones PID vaginal discharge at this time diarrhea dysuria hematuria or trauma or abuse. She denies any illegal drugs or exposure to coronavirus influenza or herbal remedies. TRAVEL OUTSIDE OF THE [place] IN LAST 30 DAYS: No - HPI Onset: Other - x 3 days Onset/Duration: Sudden, Persistent Quality of pain: Achy, Fullness Severity: Severe Pain Level: 3 Associated symptoms: Nausea, Vomiting Exacerbated by: Denies Relieved by: Denies Similar symptoms previously: No Recently seen / treated by doctor: No - Related Data Allergies/Adverse Reactions: No Known Allergies Allergy (Verified 04/26/17 22:51) Past Medical History - Social History Smoking Status: Current Every Day Smoker Frequency of alcohol use: None Drug Abuse: Marijuana Family History: DM, Thyroid Disfunction Patient has suicidal ideation: No Patient has homicidal ideation: No Renal/ Medical History: Denies: Hx Peritoneal Dialysis Psychiatric Medical History: Reports: Hx Depression - Immunizations Immunizations up to date: Yes Hx Diphtheria, Pertussis, Tetanus Vaccination: Yes Physical Exam - Vital signs Vitals: Temp Pulse Resp BP Pulse Ox 98.7 F 64 24 H 129/81 H 99 07/07/19 12:28 07/07/19 12:28 07/07/19 12:28 07/07/19 12:28 07/07/19 12:28 Interpretation: Tachypneic - General General appearance: Alert In distress: Moderate - HEENT Head: Normocephalic Eyes: Normal Conjunctiva: Normal Cornea: Normal Extraocular movements intact: Yes Eyelashes: Normal Pupils: PERRL Sinus: Normal Nasal: Normal Mouth/Lips: Normal Pharynx: Normal Neck: Normal - Respiratory Respiratory status: No respiratory distress Chest status: Nontender - .. Breath sounds: Normal Chest palpation: Normal - Likely - Cardiovascular Rhythm: Regular Heart sounds: Normal auscultation Murmur: No Friction rub: No Yovany's crunch: No - Both he has - Abdominal Inspection: Normal Distension: No distension Bowel sounds: Hypoactive Tenderness: Tender - LUQ RUQ Organomegaly: No organomegaly - Genitourinary External exam: Normal - Back Back: Tender - Bilateral CVA pain on percussion - Extremities General upper extremity: Normal inspection General lower extremity: Normal inspection - Neurological Neuro grossly intact: Yes Cognition: Normal Orientation: AAOx4 Sherry Coma Scale Eye Opening: Spontaneous [place]ry Coma Scale Verbal: Oriented [place] Coma Scale Motor: Obeys Commands [place] Coma Scale Total: 15 Speech: Normal Cranial nerves: Normal Cerebellar coordination: Normal Motor strength normal: LUE - Microscope today today, RUE, LLE, RLE - Psychological Associated symptoms: Anxious - Skin Skin Temperature: Warm Skin Moisture: Dry Course - Vital Signs Vital signs: Temp Pulse Resp BP Pulse Ox 98.7 F 64 24 H 129/81 H 99 07/07/19 12:28 07/07/19 12:28 07/07/19 12:28 07/07/19 12:28 07/07/19 12:28 - Laboratory Result Diagrams: 07/07/19 13:17 07/07/19 13:17 Laboratory results interpreted by me: 07/07/19 07/07/19 13:17 15:20 WBC 13.6 H Absolute Neuts (auto) 11.2 H Seg Neutrophils % 82.2 H Urine Protein 30 H Urine Ketones 20 H Urine Nitrite POSITIVE H Urine Urobilinogen 4.0 H Ur Leukocyte Esterase TRACE H Urine Ascorbic Acid 40 H - Diagnostic Test Radiology reviewed: Reports reviewed Critical Care Note - Critical Care Note Total time excluding time spent on procedures (mins): 90 Comments: I advised patient of her CT findings and her lab findings Discharge - Discharge Clinical Impression: Kidney calculi Vomiting Qualifiers: Vomiting type: unspecified Vomiting Intractability: unspecified Nausea presence: unspecified Qualified Code(s): R11.10 - Vomiting, unspecified UTI (urinary tract infection) Qualifiers: Urinary tract infection type: acute cystitis Hematuria presence: without hematuria Qualified Code(s): N30.00 - Acute cystitis without hematuria Condition: Good Disposition: HOME, SELF-CARE Additional Instructions: Follow-up with personal doctor return to ER as needed encourage fluids also follow-up with urologist. you may want to follow-up with urologist [facility] or [place] or [place] Prescriptions: Ciprofloxacin HCl [Cipro 500 mg Tablet] 500 mg PO BID #20 tablet Tamsulosin HCl [Flomax 0.4 mg Cap.sr] 0.4 mg PO DAILY #7 cap.sr.24h Oxycodone HCl/Acetaminophen [Percocet 5-325 mg Tablet] 1 tab PO Q4H PRN #15 tablet PRN Reason: Pain Scale Of 1 Oxycodone HCl/Acetaminophen [Percocet 5-325 mg Tablet] 1 tab PO BID 7 Days #14 tablet Promethazine HCl [Phenergan 25 mg Tablet] 1 tab PO Q6H PRN #15 tablet PRN Reason: Forms: Return to Work Referrals: NÉSTOR CORDERO FNP-C [Primary Care Provider] - Follow up as needed
[2019-07-07] MEDS ORDERED: NORMAL SALINE 1000 ML 1,000 ML IV ONE (12:50)
[2019-07-07] MEDS ORDERED: ONDANSETRON HCL INJ/PF 4 MG/2 ML SDV IV ONE (12:52)
[2019-07-07] MEDS ORDERED: KETOROLAC TROMETHAMINE INJ/PF 30 MG/1 ML SDV IV ONE (12:52)
[2019-07-07] MEDS ORDERED: FENTANYL CITRATE INJ/PF 100 MCG/2 ML AMPUL IV ONE (12:55)
[2019-07-07 13:37] LABS: ABSOLUTE LYMPHOCYTES (AUTO) 1.8 10^3/uL (0.5-4.7); ABSOLUTE MONOCYTES (AUTO) 0.5 10^3/uL (0.1-1.4); ABSOLUTE NEUT (AUTO) 11.2 10^3/uL (1.7-8.2); BASOPHILS % (AUTO) 0.3 % (0-2); EOSINOPHILS % (AUTO) 0.3 % (0-6); HEMATOCRIT 41.5 % (36.0-47.0); LYMPHOCYTES % (AUTO) 13.5 % (13-45); MEAN CORPUSCULAR HGB CONC 33.8 g/dL (32.0-36.0); MEAN CORPUSCULAR VOLUME 86 fl (80-97); MONOCYTES % (AUTO) 3.7 % (3-13); PLATELET COUNT 359 10^3/uL (150-450); RED BLOOD COUNT 4.84 10^6/uL (3.72-5.28); RED CELL DISTRIBUTION WIDTH 13.2 % (11.5-14.0); SEGMENTED NEUTROPHILS % (AUTO) 82.2 % (42-78); TOTAL CELLS COUNTED % (AUTO) 100 %; WHITE BLOOD COUNT 13.6 10^3/uL (4.0-10.5)
[2019-07-07 13:56] LABS: ALBUMIN 4.9 g/dL (3.5-5.0); ALKALINE PHOSPHATASE 47 U/L (38-126); ANION GAP 11 (5-19); ASPARTATE AMINO TRANSFERASE 22 U/L (14-36); BILIRUBIN,DIRECT 0.1 mg/dL (0.0-0.4); BILIRUBIN,TOTAL 0.6 mg/dL (0.2-1.3); BLOOD UREA NITROGEN 7 mg/dL (7-20); CARBON DIOXIDE 23 mmol/L (22-30); CHLORIDE 105 mmol/L (98-107); GLUCOSE 99 mg/dL (75-110); POTASSIUM 3.6 mmol/L (3.6-5.0)
--- NOTE | 2019-07-07 14:24 | RADIOLOGY REPORT (SQ) ---
EXAM DESCRIPTION: CT ABD/PELVIS NO ORAL OR IV IMAGES COMPLETED DATE/TIME: 07/07/2019 2:11 pm REASON FOR STUDY: diffuse pain upper abd and mid back COMPARISON: None. TECHNIQUE: CT scan of the abdomen and pelvis performed without intravenous or oral contrast. Images reviewed with lung, soft tissue, and bone windows. Reconstructed coronal and sagittal MPR images revi ewed. All images stored on PACS. All CT scanners at this facility use dose modulation, iterative reconstruction, and/or weight based d osing when appropriate to reduce radiation dose to as low as reasonably achievable (ALARA). [facility]: Dose Right [facility]: CareDose [facility]: Dose Right [facility]: Teradose 4D [facility]: [employer] RADIATION DOSE: CT Rad equipment meets quality standard of care and radiation dose reduction techniq ues were employed. CTDIvol: 5.1 mGy. DLP: 276 mGy-cm.mGy. LIMITATIONS: None. FINDINGS: LOWER CHEST: No significant findings. No nodules or infiltrates. NON-CONTRASTED LIVER, SPLEEN, ADRENALS: Evaluation limited by lack of IV contrast. No identified sign ificant masses. PANCREAS: No masses. No peripancreatic inflammatory changes. GALLBLADDER: No identified stones by CT criteria. No inflammatory changes to suggest cholecystitis. RIGHT KIDNEY AND URETER: No suspicious masses. Assessment limited by lack of IV contrast. Medullary nephrocalcinosis. No hydronephrosis or hydroureter. LEFT KIDNEY AND URETER: No suspicious masses. Assessment limited by lack of IV contrast. Medullary nephrocalcinosis. Additional small 2 to 3 mm nonobstructing stone in the lower pole the left kidney. No hydronephrosis or hydroureter. AORTA AND RETROPERITONEUM: No aneurysm. No retroperitoneal masses or adenopathy. BOWEL AND PERITONEAL CAVITY: No obvious masses or inflammatory changes. No free fluid. APPENDIX: Normal. PELVIS, BLADDER, AND ABDOMINAL WALL:No abnormal masses. No free fluid. Bladder normal. BONES: No significant findings. OTHER: No other significant finding. IMPRESSION: Renal calcification consistent with medullary nephrocalcinosis. Small nonobstructing st one in the lower pole the left kidney. No acute findings in the abdomen or pelvis. COMMENT: Quality ID # [id number]: Final reports with documentation of one or more dose reduction techniques (e.g., Automated exposure control, adjustment of the mA and/or kV according to patient size, use of iterative reconstruction technique) TECHNICAL DOCUMENTATION: JOB ID: [id number] 2010 [employer]- All Rights Reserved Reading location - IP/workstation name: [email or web address]
[2019-07-07 15:49] LABS: APPEARANCE,URINE SLIGHTLY-CLOUDY; BILIRUBIN,URINE NEGATIVE (NEGATIVE); GLUCOSE, URINE NEGATIVE (NEGATIVE); KETONES,URINE 20 mg/dL (NEGATIVE); LEUKOCYTE ESTERASE,URINE TRACE (NEGATIVE); NITRITE,URINE POSITIVE (NEGATIVE); PROTEIN,URINE 30 mg/dL (NEGATIVE); URINE SPECIFIC GRAVITY 1.021
[2019-07-07 15:51] LABS: COLOR,URINE YELLOW
[2019-07-07 16:49] VITALS: BP 117/73
== END 2019-07-07 17:04 | disposition home or self-care (01) ==
LOC: ER 12:22
DX: N20.0 Calculus of kidney (principal); N30.00 Acute cystitis without hematuria; R10.10 Upper abdominal pain, unspecified; R11.10 Vomiting, unspecified; M54.9 Dorsalgia, unspecified; F17.200 Nicotine dependence, unspecified, uncomplicated
CPT/HCPCS: 99285; 96361; 96374; 96375; 36415; 84703; 85025; 81025; 80053; 81001; 74176; J3010; J1885; J2405; J7030